=== PATIENT | male | born 1985 | race Caucasian/White ===

== ENCOUNTER 2023-06-08 07:48 | Day surgery (SDC) | payer BC, SELFPAY ==
--- NOTE | 2023-06-08 | VOCOB_PTH ---
PATIENT: ANISA OSBORN [place] [facility] [place][id number] AGE/SX: 37/M ROOM: RE06/08/[address]: Dr. 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 SJ:nolberto 06/09/2023 COMMENT Case has been reviewed in consultation with Dr. Bey who concurs with the above diagnosis. IDC:AM MICROSCOPIC DESCRIPTION Slides are reviewed. GROSS DESCRIPTION Received in fixative is one container labeled with the patient's name and designated left vocal cord mass. The specimen consists of multiple irregular fragments of castillo soft tissue that in aggregate measure 1.0 x 0.2 x 0.1 cm. The specimen is totally submitted in one cassette. / SJ:nolberto 06/08/2023 TC:5 CPT: 99969
[2023-06-08] MEDS: Lactated Ringers 1,000 ML 15 ML IV (08:21)
[2023-06-08 08:22] VITALS: BP 128/87; PULSE 80; RESP 18; TEMP 37.2; O2SAT 99; BMI 24.7
--- NOTE | 2023-06-08 09:11 | DCINST_ITS ---
Discharge Instructions Diet Discharge Diet: No restrictions Activity Discharge Activity: Return to Normal Activity Dressing / Incision Call your doctor if your incision/area has: Increased Pain/ Swelling Follow Up Care Please Follow Up With: Rogelio Sepulveda MD When: 1 month Test Results: Test results from this visit will be discussed in further detail at your follow- up appointment, if applicable. Discharge Plan Admission Attending Provider: Rogelio Sepulveda Primary Care Provider: Care Physician,No Primary Discharge Orders/Prescriptions Prescriptions: No Action omeprazole 40 mg capsule,delayed release(DR/EC) 40 mg PO DAILY Patient Comments: take 1 capsule by mouth once daily Referrals / Follow Up: Care Physician,No Primary [Primary Care Provider] - Disposition Disposition (needs filled in before D/C Order can be placed): Home, Self Care
--- NOTE | 2023-06-08 09:11 | PCM.OPRPT ---
Problems Associated Problem List Diagnoses (1) Vocal cord mass: Report of Operation Date of Procedure: 06/08/23 Pre-Operative Diagnosis: left vocal cord mass Post-Operative Diagnosis: left vocal cord mass Surgery/Procedure Performed:: direct laryngoscopy with use of operative telescope and biopsy of vocal cord mass Surgeon: Rogelio Sepulveda Type of Anesthesia: General Description of Procedure: on the day of the procedure, after appropriate informed consent was obtained, the patient was brought to the operating room and placed in supine position on the operating table. he was placed under general endotracheal anesthesia by the anesthesiologist. the endotracheal tube was secured, the eyes were taped. the table was rotated 90 degrees toward the surgeon. a tooth guard was placed. a ben laryngoscope was inserted into the oral cavity with care not to damage the lips, teeth or gums. it was suspended from the wilcox stand. a clear glottic view was obtained and examined with the zero degree endoscope. a mid left vocal cord mass was seen, 2mm. this was excised with a grasper and laryngoscopic scissor. hemostasis was observed. the patient was extubated uneventfully and transferred to the PACU in stable condition.
[2023-06-08] MEDS: Oxymetazoline 0.05% 1 SPRAY SPRAY.BTL 15 SPRAY (09:44)
[2023-06-08 10:11] VITALS: BP 128/87; BP 144/96; PULSE 87; RESP 16; TEMP 36.3; O2SAT 98
[2023-06-08 10:15] VITALS: BP 128/87; BP 144/97; PULSE 84; RESP 16; O2SAT 99
[2023-06-08 10:20] VITALS: BP 126/88; BP 128/87; PULSE 83; RESP 16; O2SAT 99
[2023-06-08 10:22] VITALS: BP 128/87; BP 131/87; PULSE 84; RESP 16; TEMP 36.5; O2SAT 98
[2023-06-08 10:50] VITALS: BP 128/87; BP 129/83; PULSE 84; RESP 16; TEMP 36.8; O2SAT 98
== END 2023-06-08 10:53 | disposition home or self-care (01) ==
LOC: SDC 07:50 → AC 07:51
PROVIDERS: Referring Provider Otolaryngology; Visit Provider Otolaryngology
PROC: 0CJS8ZZ Inspection of Larynx, Via Natural or Artificial Opening Endoscopic (ICD-10-PCS; CPT 31575; principal; 2023-06-08 09:15)
DX: D14.1 Benign neoplasm of larynx (principal); K21.9 Gastro-esophageal reflux disease without esophagitis; F17.210 Nicotine dependence, cigarettes, uncomplicated; Z79.899 Other long term (current) drug therapy
CPT/HCPCS: 31536; 00320; 88305; J7120; J2405